=== PATIENT | male | born 1965 | race African-American/Black ===

== ENCOUNTER 2022-12-06 11:59 | Inpatient (IN) | payer OTHER ==
[2022-12-06 13:05] VITALS: BMI 24.2
[2022-12-06] MEDS ORDERED: BISMUTH SUBSALICYLATE 524 MG/30 ML PO PRN (13:46)
[2022-12-06] MEDS ORDERED: METHOCARBAMOL 500 MG TABLET PO PRN (13:46)
[2022-12-06] MEDS ORDERED: MAGNESIUM HYDROX 2400MG/30ML ORAL SUSPENSION 30 ML CUP PO PRN (13:46)
[2022-12-06] MEDS ORDERED: POLYETHYLENE GLYCOL (HEALTHYLAX) 3350 17 GM PACKET PO PRN (13:46)
[2022-12-06] MEDS ORDERED: BENZONATATE 200 MG CAPSULE PO PRN (13:46)
[2022-12-06] MEDS ORDERED: BENZOCAINE/MENTHOL (CHLORASEPTIC ) LOZENGE MM PRN (13:46)
[2022-12-06] MEDS ORDERED: LOPERAMIDE HCL 2 MG CAPSULE PO PRN (13:46)
[2022-12-06] MEDS ORDERED: guaiFENesin 600 MG TABLET.ER (FP) PO PRN (13:46)
[2022-12-06] MEDS ORDERED: MAG HYDROX/AL HYDROX/SIMETH 30 ML UNIT-DOSE CUP PO PRN (13:46)
[2022-12-06] MEDS ORDERED: ONDANSETRON *ODT* 4 MG TABLET SL PRN (13:46)
[2022-12-06] MEDS ORDERED: IBUPROFEN 400 MG TABLET (FP) PO PRN (13:46)
[2022-12-06] MEDS ORDERED: DICYCLOMINE HCL 10 MG CAPSULE PO PRN (13:46)
[2022-12-06] MEDS ORDERED: NALOXONE HCL 0.4 MG/ML VIAL IM PRN (13:46)
[2022-12-06] MEDS ORDERED: NALOXONE HCL (KLOXXADO) 8 MG SPRAY NS PRN (13:46)
[2022-12-06] MEDS ORDERED: hydrOXYzine PAMOATE 25 MG CAPSULE (FP) PO PRN (13:46)
[2022-12-06] MEDS ORDERED: ACETAMINOPHEN 325 MG TABLET (FP) PO PRN (13:46)
[2022-12-06] MEDS ORDERED: IBUPROFEN 600 MG TABLET (FP) PO PRN (13:46)
[2022-12-06] MEDS ORDERED: methaDONE HCL 10 MG TABLET (FOR DETOX USE ONLY) PO ONE (14:15)
[2022-12-06] MEDS ORDERED: methaDONE HCL 10 MG TABLET (FOR DETOX USE ONLY) ONE (15:22)
[2022-12-06] MEDS ORDERED: PRENATAL VITAMINS W/ FOLIC ACID TABLET (FP) PO ONE (15:23)
[2022-12-06] MEDS: PRENATAL VITAMINS W/ FOLIC ACID TABLET (FP) PO SCH (15:26)
[2022-12-06] MEDS: MELATONIN 5 MG TABLETS PO SCH (22:23)
[2022-12-06] MEDS: THIAMINE HCL 100 MG TABLET (FP) PO SCH (22:23)
[2022-12-06] MEDS: cloNIDine HCL 0.1 MG TABLET PO PRN (22:25)
[2022-12-07] MEDS: amLODIPine BESYLATE 10 MG TABLET (FP) PO SCH (10:19)
[2022-12-07] MEDS: PRENATAL VITAMINS W/ FOLIC ACID TABLET (FP) PO SCH (10:19)
[2022-12-07 11:51] LABS: POTASSIUM 5.1 mmol/L (3.5-5.1)
[2022-12-07 11:55] LABS: CALCIUM 8.8 mg/dL (8.5-10.1)
[2022-12-07 11:56] LABS: BLOOD UREA NITROGEN 16.9 mg/dL (7-18)
[2022-12-07 11:57] LABS: ALBUMIN 2.8 g/dl (3.4-5.0)
[2022-12-07 11:58] LABS: CREATININE 1.1 mg/dL (0.55-1.3)
[2022-12-07 11:59] LABS: HEMATOCRIT 38.3 % (35.4-49); HEMOGLOBIN 12.5 GM/dL (11.7-16.9); MCH 28.1 pg (25.7-33.7); MCHC 32.5 g/dl (32.0-35.9); MEAN CELL VOLUME 86.5 fl (80-96); MEAN PLT VOLUME 10.2 fl (7.5-11.1); PLATELET COUNT 193 10^3/uL (134-434); RBC 4.42 M/mm3 (4.00-5.60); RDW 14.7 % (11.9-15.9); WHITE BLOOD COUNT 4.4 K/mm3 (4.0-10.0)
[2022-12-07 12:00] LABS: BILIRUBIN,TOTAL 0.2 mg/dL (0.2-1); TOT PROT 6.3 g/dl (6.4-8.2)
[2022-12-07] MEDS: THIAMINE HCL 100 MG TABLET (FP) PO SCH (22:34)
[2022-12-07] MEDS: cloNIDine HCL 0.1 MG TABLET PO PRN (22:34)
[2022-12-07] MEDS: MELATONIN 5 MG TABLETS PO SCH (22:34)
[2022-12-08] MEDS ORDERED: methaDONE HCL 10 MG TABLET (FOR DETOX USE ONLY) PO ONE (10:00)
[2022-12-08] MEDS: PRENATAL VITAMINS W/ FOLIC ACID TABLET (FP) PO SCH (10:29)
[2022-12-08] MEDS: cloNIDine HCL 0.1 MG TABLET PO PRN (10:29)
[2022-12-08] MEDS: amLODIPine BESYLATE 10 MG TABLET (FP) PO SCH (10:30)
[2022-12-08] MEDS: THIAMINE HCL 100 MG TABLET (FP) PO SCH (22:43)
[2022-12-08] MEDS: MELATONIN 5 MG TABLETS PO SCH (22:43)
[2022-12-09] MEDS: amLODIPine BESYLATE 10 MG TABLET (FP) PO SCH (10:24)
[2022-12-09] MEDS: PRENATAL VITAMINS W/ FOLIC ACID TABLET (FP) PO SCH (10:24)
[2022-12-09] MEDS: THIAMINE HCL 100 MG TABLET (FP) PO SCH (22:18)
[2022-12-09] MEDS: MELATONIN 5 MG TABLETS PO SCH (22:18)
[2022-12-10] MEDS ORDERED: methaDONE HCL 10 MG TABLET (FOR DETOX USE ONLY) PO ONE ×2 (10:00→12:00)
[2022-12-10] MEDS: PRENATAL VITAMINS W/ FOLIC ACID TABLET (FP) PO SCH (12:12)
[2022-12-10] MEDS: amLODIPine BESYLATE 10 MG TABLET (FP) PO SCH (12:12)
[2022-12-10 20:41] VITALS: RESP 18
[2022-12-10] MEDS: MELATONIN 5 MG TABLETS PO SCH (23:11)
[2022-12-10] MEDS: THIAMINE HCL 100 MG TABLET (FP) PO SCH (23:11)
[2022-12-11 09:41] VITALS: BP 124/65; PULSE 75; TEMP 97
[2022-12-11] MEDS: amLODIPine BESYLATE 10 MG TABLET (FP) PO SCH (11:33)
[2022-12-11] MEDS: PRENATAL VITAMINS W/ FOLIC ACID TABLET (FP) PO SCH (11:33)
== END 2022-12-11 10:25 | disposition home or self-care (01) | DRG 773 ==
LOC: YASAS 11:59 → Y6N 14:12
PROVIDERS: ADMIT Allergy & Immunology; ATTEND Surgery
PROC: HZ2ZZZZ Detoxification Services for Substance Abuse Treatment (ICD-10-PCS; principal; 2022-12-06)
DX: F11.23 Opioid dependence with withdrawal (principal); F14.20 Cocaine dependence, uncomplicated; F17.210 Nicotine dependence, cigarettes, uncomplicated; I10 Essential (primary) hypertension
CPT/HCPCS: 36415; 80053; 85027; 86780; 87635; 87811

== ENCOUNTER 2024-02-21 09:44 | Inpatient (IN) | payer OTHER ==
[2024-02-21 10:29] VITALS: BMI 24.2
[2024-02-21] MEDS ORDERED: IBUPROFEN 400 MG TABLET (FP) PO PRN (11:44)
[2024-02-21] MEDS ORDERED: POLYETHYLENE GLYCOL (HEALTHYLAX) 3350 17 GM PACKET PO PRN (11:44)
[2024-02-21] MEDS ORDERED: MAG HYDROX/AL HYDROX/SIMETH 30 ML UNIT-DOSE CUP PO PRN (11:44)
[2024-02-21] MEDS ORDERED: LOPERAMIDE HCL 2 MG CAPSULE PO PRN (11:44)
[2024-02-21] MEDS ORDERED: guaiFENesin 600 MG TABLET.ER (FP) PO PRN (11:44)
[2024-02-21] MEDS ORDERED: NALOXONE (NARCAN) HCL 4 MG/0.1 ML SPRAY NS PRN (11:44)
[2024-02-21] MEDS ORDERED: MAGNESIUM HYDROX 2400MG/30ML ORAL SUSPENSION 30 ML CUP PO PRN (11:44)
[2024-02-21] MEDS ORDERED: ACETAMINOPHEN 325 MG TABLET (FP) PO PRN (11:44)
[2024-02-21] MEDS ORDERED: BENZONATATE 200 MG CAPSULE PO PRN (11:44)
[2024-02-21] MEDS ORDERED: NICOTINE POLACRILEX 2 MG GUM BUC PRN (11:44)
[2024-02-21] MEDS ORDERED: DICYCLOMINE HCL 10 MG CAPSULE PO PRN (11:44)
[2024-02-21] MEDS ORDERED: BENZOCAINE/MENTHOL (CHLORASEPTIC ) LOZENGE MM PRN (11:44)
[2024-02-21] MEDS ORDERED: NALOXONE HCL 0.4 MG/ML VIAL IM PRN (11:44)
[2024-02-21] MEDS ORDERED: cloNIDine HCL 0.1 MG TABLET PO PRN (11:59)
[2024-02-21] MEDS: methaDONE HCL 10 MG TABLET (FOR DETOX USE ONLY) PO ONE (12:26)
[2024-02-21] MEDS: THIAMINE 100 MG TABLET PO SCH (22:09)
[2024-02-22] MEDS: MELATONIN 5 MG TABLETS PO SCH (00:18)
[2024-02-22] MEDS: METHOCARBAMOL 500 MG TABLET PO PRN (09:20)
[2024-02-22] MEDS: hydrOXYzine PAMOATE 25 MG CAPSULE (FP) PO PRN (09:20)
[2024-02-22] MEDS: PRENATAL VITAMINS W/ FOLIC ACID TABLET (FP) PO SCH (09:21)
[2024-02-22] MEDS: NICOTINE 14 MG/24 HOURS TOPICAL PATCH TD SCH (09:21)
[2024-02-22] MEDS: amLODIPine BESYLATE 10 MG TABLET (FP) PO SCH (09:22)
[2024-02-22 12:13] LABS: HEMATOCRIT 38.1 % (35.4-49); HEMOGLOBIN 12.5 GM/dL (11.7-16.9); MCH 29.4 pg (25.7-33.7); MCHC 32.8 g/dl (32.0-35.9); MEAN CELL VOLUME 89.6 fl (80-96); MEAN PLT VOLUME 10.4 fl (7.5-11.1); PLATELET COUNT 147 10^3/uL (134-434); RBC 4.25 M/mm3 (4.00-5.60); RDW 15.4 % (11.9-15.9); WHITE BLOOD COUNT 6.2 K/mm3 (4.0-10.0)
[2024-02-22 12:16] LABS: POTASSIUM 4.5 mmol/L (3.5-5.1)
[2024-02-22 12:19] LABS: ALBUMIN 3.5 g/dl (3.4-5.0); BLOOD UREA NITROGEN 16.8 mg/dL (7-18); CALCIUM 8.9 mg/dL (8.5-10.1)
[2024-02-22 12:22] LABS: CREATININE 1.1 mg/dL (0.55-1.3)
[2024-02-22 12:24] LABS: BILIRUBIN,TOTAL 0.7 mg/dL (0.2-1); TOT PROT 7.2 g/dl (6.4-8.2)
[2024-02-23] MEDS: methaDONE HCL 10 MG TABLET (FOR DETOX USE ONLY) PO ONE (10:22)
[2024-02-24] MEDS: IBUPROFEN 600 MG TABLET (FP) PO PRN (06:15)
[2024-02-24] MEDS: HYDROCHLOROTHIAZIDE 25 MG TABLET (FP) PO ONE (16:05)
[2024-02-24] MEDS: FUROSEMIDE 20 MG TABLET (FP) PO SCH (16:05)
[2024-02-25] MEDS: HYDROCHLOROTHIAZIDE 25 MG TABLET (FP) PO SCH (09:08)
[2024-02-25] MEDS: methaDONE HCL 10 MG TABLET (FOR DETOX USE ONLY) PO ONE (09:09)
[2024-02-25 20:54] VITALS: RESP 16
[2024-02-26] MEDS: BISMUTH SUBSALICYLATE 262 MG/15 ML BTL PO PRN (01:48)
[2024-02-26] MEDS: ONDANSETRON *ODT* 4 MG TABLET SL PRN (05:37)
[2024-02-26 08:57] VITALS: BP 121/81; PULSE 62; TEMP 97.5
== END 2024-02-26 08:39 | disposition home or self-care (01) | DRG 773 ==
LOC: YASAS 09:44 → Y6N 11:33
PROVIDERS: ADMIT Allergy & Immunology; ATTEND Family Medicine Addiction Medicine
PROC: HZ2ZZZZ Detoxification Services for Substance Abuse Treatment (ICD-10-PCS; principal; 2024-02-21)
DX: F11.23 Opioid dependence with withdrawal (principal); F14.20 Cocaine dependence, uncomplicated; F17.210 Nicotine dependence, cigarettes, uncomplicated; F19.24 Other psychoactive substance dependence with psychoactive substance-induced mood disorder; I10 Essential (primary) hypertension; M54.50 Low back pain, unspecified; G89.29 Other chronic pain; R60.0 Localized edema
CPT/HCPCS: 36415; 80053; 80305; 80307; 85027; 86780; 93005; 93010; Q0162